=== PATIENT | male | born 1985 | race Two or more races ===

== ENCOUNTER 2020-12-22 17:22 | Emergency (ER) | payer OTHER ==
[~2020-12-22] VITALS: Ht 177.8 cm; Wt 100.0 kg
--- NOTE | 2020-12-22 18:01 | RAD ---
Exam: CT head without contrast Date: 12/22/2020. Indication: Headache. Comparisons: None Technique: CT of the head without intravenous contrast performed using contiguous axial imaging from the skull base to the vertex. Soft tissue and bone window algorithms were reviewed. The CT scan was acquired using radiation reduction techniques, such automated exposure control, adjustment of the mA and/or kV according to the patient's size and use of iterative reconstruction techniques. Findings: The ventricles, cortical sulci and cisterns are symmetric and appropriate in size. Neither mass, midline shift, extra-axial fluid collections, intracranial hemorrhage, nor acute or subacute is chemic changes are seen. The calvarium is intact. The visualized skull base is normal in appearance. Tiny bilateral maxillary mucosal retention cysts. Remaining paranasal sinuses and mastoid air cells a re clear. The orbits and their contents are symmetric. Impression: No evidence of acute intracranial process. Electronically signed by: Kam Borjas DO (12/22/2020 5:58 PM) [facility]
[2020-12-22] MEDS ORDERED: KETOROLAC 30 MG/ML VIAL. IVP ONE (18:30)
[2020-12-22] MEDS ORDERED: IV NORMAL SALINE 1,000ML 1,000 ML IV ONE (18:30)
[2020-12-22] MEDS ORDERED: METOCLOPRAMIDE HCL 10 MG/2 ML VIAL. IVP ONE (18:30)
[2020-12-22] MEDS ORDERED: diphenhydrAMINE 50 MG/ML VIAL IVP ONE (18:30)
--- NOTE | 2020-12-22 19:36 | PHYS DOC ---
Adult General Chief Complaint Chief Complaint: HEADACHE HPI HPI Patient is a 35-year-old male who presents to the emergency department complaining of a sudden onset of severe headache behind left eye that radiates to the back of his head. Patient reports this started at approximately 4 PM while working at a computer and his home residence, patient reports he passed out onto the floor got up and then called his who came home immediately. Patient denies nausea, vomiting, or diarrhea. Patient's reports given him 500 mg of Tylenol shortly after she arrived home after 4 PM today without relief in his pain. Patient reports his pain waxes and wanes between a 9 to a 10 on a 1-10 pain scale. Denies allergies to medications, denies taking prescription or [id number] medications, reports he does take a multivitamin only. Denies recent stressful events, denies visual disturbances, denies homicidal suicidal ideation. Denies recent fever or chills. Patient denies other physical complaints or physical concerns. (JUAN LAZO APRN) Review of Systems Review of Systems 14 body systems of review of systems have been reviewed. See HPI for pertinent positives and negative responses, otherwise all other systems are negative, nonpertinent or noncontributory. Constitutional: Negative except as outlined in HPI above. Skin: Negative except as outlined in HPI above. Eyes: Negative except as outlined in HPI above. HENT: Negative except as outlined in HPI above. Respiratory: Negative except as outlined in HPI above. Cardiovascular: Negative except as outlined in HPI above. GI: Negative except as outlined in HPI above. : Negative except as outlined in HPI above. Musculoskeletal: Negative except as outlined in HPI above. Integument: Negative except as outlined in HPI above. Neurologic: Negative except as outlined in HPI above. Endocrine: Negative except as outlined in HPI above. Lymphatic: Negative except as outlined in HPI above. Psychiatric: Negative except as outlined in HPI above. (JUAN LAZO APRN) Current Medications Current Medications Current Medications Medications (Trade) Dose Ordered Sig/Kobe Start Time Stop Time Status Last Admin Dose Admin Diphenhydramine HCl (Benadryl) 50 mg 1X ONCE 12/22/20 18:30 12/22/20 18:38 DC 12/22/20 18:40 50 MG Ketorolac Tromethamine (Toradol 30mg Vial) 30 mg 1X ONCE 12/22/20 18:30 12/22/20 18:38 DC 12/22/20 18:39 30 MG Metoclopramide HCl (Reglan Vial) 10 mg 1X ONCE 12/22/20 18:30 12/22/20 18:38 DC 12/22/20 18:40 10 MG Sodium Chloride 1,000 ml @ 1,000 mls/hr 1X ONCE 12/22/20 18:30 12/22/20 19:29 12/22/20 18:30 1,000 MLS/HR (JUAN LAZO APRN) Allergies Allergies Allergies Coded Allergies Type Severity Reaction Last Updated Verified No Known Drug Allergies 12/22/20 No (JUAN LAZO APRN) Physical Exam Physical Exam Constitutional: Well developed, well nourished, no acute distress, non-toxic appearance. 35-year-old male, holding a towel over his eyes, speaking very quietly, otherwise in no apparent distress. HENT: Normocephalic, atraumatic. No drooling, no trismus, no deep tissue infectious process of the oropharynx appreciated. Patient speaking in whispers. Eyes: Conjunctiva normal, no discharge. PERRLA, satisfactory 6 cardinal eye movements. Patient is photophobic. Neck: Normal range of motion, no stridor. No nuchal rigidity, no meningismus signs Cardiovascular: No cyanosis appreciated, distal cap refill less than 2 seconds. Lungs & Thorax: Patient is in no respiratory distress, no audible adventitious lung sounds appreciated. Abdomen: Nontender, no abnormalities noted. Skin: Warm, dry, no erythema, no rash. Back: No tenderness, no deformities. Extremities: No tenderness, no cyanosis, no clubbing, ROM intact, no edema. Neurologic: Alert and oriented X 3, normal motor function, normal sensory function, no focal deficits noted. Psychologic: Affect normal, judgement normal, mood normal. (JUAN LAZO APRN) EKG EKG [] (JUAN LAZO APRN) Radiology/Procedures Radiology/Procedures PATIENT: JONI CADET ACCOUNT: [id number] : 1985 LOCATION: ER AGE: 35 SEX: M EXAM STATUS: REG ER ORD. PHYSICIAN: CLAUDE PIERRE DO REASON: headache PROCEDURE: CT HEAD WO CONTRAST Exam: CT head without contrast Date: 12/22/2020. Indication: Headache. Comparisons: None Technique: CT of the head without intravenous contrast performed using contiguous axial imaging from the skull base to the vertex. Soft tissue and bone window algorithms were reviewed. The CT scan was acquired using radiation reduction techniques, such automated exposure control, adjustment of the mA and/or kV according to the patient's size and use of iterative reconstruction techniques. Findings: The ventricles, cortical sulci and cisterns are symmetric and appropriate in size. Neither mass, midline shift, extra-axial fluid collections, intracranial hemorrhage, nor acute or subacute ischemic changes are seen. The calvarium is intact. The visualized skull base is normal in appearance. Tiny bilateral maxillary mucosal retention cysts. Remaining paranasal sinuses and mastoid air cells are clear. The orbits and their contents are symmetric. Impression: No evidence of acute intracranial process. Electronically signed by: Kam Borjas DO (12/22/2020 5:58 PM) [facility] (JUAN LAZO APRN) Heart Score C/O Chest Pain: No Risk Factors: Risk Factors: DM, Current or recent (<one month) smoker, HTN, HLP, family history of CAD, obesity. Risk Scores: Risk Factors: DM, Current or recent (<one month) smoker, HTN, HLP, family history of CAD, obesity. (JUAN LAZO APRN) Course & Med Decision Making Course & Med Decision Making Pertinent Labs and Imaging studies reviewed. (See chart for details) 35-year-old male, vital signs reviewed, presents emergency department concerning severe onset of worst headache of his life with thunderclap onset. Very low concern for meningitis component, patient is not febrile, vital signs are within normal limits, patient has had no recent illnesses, denies being around ill people. Denies recent travel. 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 Patient reports he has many assignments due very soon. Patient reports this overwhelmed him to the point where he passed out. Patient is speaking in whispers reporting it is hard for him to concentrate to speak in a normal voice tone. Most likely a anxiety component to this ER presentation. Related to patient's explanation of headache, will order CT head without contrast, will give headache cocktail to include 1 L normal saline, 10 mg IV Reglan, 50 mg IV Benadryl, IV Toradol. Will reevaluate after period of time. Patient CT head nonconcerning. Discussed with patient findings, reevaluation of the patient by the patient in no apparent distress, reports pain down to a 3 out of 10. Discussed with patient strict follow-up with primary care for reevaluation and ongoing pain management of headaches if reoccurring. Will give recommendation for neurology specialist in the event patient cannot secure a timely appointment with his primary care physician. Will give 4 mg morphine for ongoing head pain, prescribe oral steroid and antinausea medication for home use. Discussed with patient use of Benadryl for recurrent headaches, NSAID therapy. Return to ER precautions or concerns, patient is amenable to and gave verbal understanding of discharge ED planning. Discussed with the patient all findings and diagnostic testing as well as the need to follow-up with their primary care provider for further evaluation and treatment or return to the ED if any new or worsening symptoms. Strict return precautions were also discussed at length, the patient voiced understanding and agreement with the discharge planning. The patient was nontoxic in appearance, in no apparent distress, and hemodynamically stable at the time of disposition. (JUAN LAZO APRN) Course & Med Decision Making Did not see or evaluate patient. Did not discuss patient with FEED PROJECT ENGINEER. Agree with FEED PROJECT ENGINEER's work-up and disposition per note. (MALCOLM MEREDITH MD) Dragon Disclaimer Dragon Disclaimer This electronic medical record was generated, in whole or in part, using a voice recognition dictation system. (JUAN LAZO APRN) Departure Departure: Impression: Primary Impression: Headache Disposition: HOME / SELF CARE / HOMELESS Condition: GOOD Referrals: PCP,UNKNOWN (PCP) SAPNA LOUIS MD Patient Instructions: General Headache Without Cause Additional Instructions: You were seen today in the emergency department for a severe onset of headache. A CT scan was performed and did not show any concerning findings. Your vital signs and physical presentation did was not concerning for meningitis. You were given a headache cocktail through an intravenous site which helped with your pain. I have prescribed for you a oral steroid and an antinausea medication, please take as directed, if you are not nauseated you do not need to take the antinausea medication. Please take the oral steroid daily for the next 5 days as this will help with return of your headache. You may use Tylenol and or Motrin for reoccurring headaches. As we discussed, please follow-up with your primary care physician soon for evaluation of your headache symptoms. I have provided you contact information for a neurologist, however you may use any neurologist of your choice. Please consider following up soon with a neurologist for reoccurring severe headaches. Thank you for visiting our Emergency Department. It was a pleasure taking care of you today in the emergency department and we appreciate you trusting us with your care. If any additional problems come up don't hesitate to return to visit us. Please follow up with your primary care provider so they can plan additional care if needed and know about the problem that you had. If symptoms worsen come back to the Emergency Department. Any concerning symptoms that start such as chest pain, shortness of air, weakness or numbness on one side of the body, running high fevers or any other concerning symptoms return to the ER. EMERGENCY DEPARTMENT GENERAL DISCHARGE INSTRUCTIONS Thank you for coming to [facility] (ED) today and trusting us with you care. We trust that you had a positivie experience in our Emergency Department. If you wish to speak to the department management, you may call the director at [phone]. YOUR FOLLOW UP INSTRUCTIONS ARE FOLLOWS: 1. Do you have a private Doctor? If you do not have a private doctor, please ask for a resource list of physicians or clinics that may be able to assist you with follow up care. 2. The Emergency Physician has interpreted your x-rays. The X-Ray specialist will also review them. If there is a change in the findings, you will be notified in 48 hours when at all possible. 3. A lab test or culture has been done, your results will be reviewed and you will be notified if you need a change in treatment. ADDITIONAL INSTRUCTIONS AND INFORMATION: 1. Your care today has been supervised by a physician who is specially trained in emergency care. Many problems require more than one evaluation for a complete diagnosis and treatment. We recommend that you schedule your follow up appointment as recommended to ensure complete treatment of you illness or injury. If you are unable to obtain follow up care and continue to have a problem, or if your condition worsens, we recommend that you return to the ED. 2. We are not able to safely determine your condition over the phone nor are we able to give sound medical advice over the phone. For these safety reasons, if you call for medical advice we will ask you to come to the ED for further evaluation. 3. If you have any questions regarding these discharge instructions please call the ED at [phone]. SAFETY INFORMATION: In the interest of safety, wellness, and injury prevention; we encourage you to wear your sealbelt, if you smoke; quite smoking, and we encourage family to use a protective helmet for bicycling and other sporting events that present an increased risk for head injury. IF YOUR SYMPTOMS WORSEN OR NEW SYMPTOMS DEVELOP, OR YOU HAVE CONCERNS ABOUT YOUR CONDITION; OR IF YOUR CONDITION WORSENS WHILE YOU ARE WAITING FOR YOUR FOLLOW UP APPOINTMENT; EITHER CONTACT YOUR PRIMARY CARE DOCTOR, THE PHYSICIAN WHOSE NAME AND NUMBER YOU WERE GIVEN, OR RETURN TO THE ED IMMEDIATELY. Scripts Ondansetron (ONDANSETRON ODT) 4 Mg Tab.rapdis 1 TAB PO PRN Q6-8HRS for nausea, #16 TAB 0 Refills Prov: JUAN LAZO APRN 12/22/20 Prednisone (PREDNISONE) 50 Mg Tablet 1 TAB PO DAILY for headache, #5 TAB 0 Refills Prov: JUAN LAZO APRN 12/22/20 Problem Qualifiers Primary Impression: Headache Headache type: unspecified Headache chronicity pattern: unspecified pattern Intractability: not intractable Qualified Codes: R51.9 - Headache, unspecified JUAN LAZO APRN Dec 22, 2020 19:36 MALCOLM MEREDITH MD Dec 22, 2020 22:07
[2020-12-22] MEDS ORDERED: MORPHINE SULFATE 4 MG/ML DISP.SYRIN. IV ONE (19:45)
[2020-12-22] MEDS ORDERED: ONDANSETRON PF 4 MG/2 ML VIAL. IVP ONE (19:45)
[2020-12-22] MEDS ORDERED: PRED50TA PO (20:49)
[2020-12-22] MEDS ORDERED: ONDA4TAB12 PO (20:49)
[2020-12-22 20:55] VITALS: BP 129/68
== END 2020-12-22 20:55 | disposition home or self-care (01) ==
LOC: ER 17:22
DX: R51.9 Headache, unspecified (principal)
CPT/HCPCS: 70450; 96361; 96374; 96375; 99284; J1200; J1885; J2270; J2405; J2765; J7030